=== PATIENT | female | born 1985 | race Caucasian/White ===

== ENCOUNTER 2017-06-13 12:25 | Emergency (ER) | payer MEDICAID ==
[~2017-06-13] VITALS: Ht 172.7 cm; Wt 78.3 kg
[2017-06-13] MEDS ORDERED: SODIUM CHLORIDE 0.9% 1,000ML IVBOLUS ONE (13:00)
[2017-06-13] MEDS ORDERED: FAMOTIDINE 20 MG/2 ML IVP ONE (13:00)
[2017-06-13] MEDS ORDERED: DIPHENHYDRAMINE 50 MG/ML, 1ML IVPush ONE (13:00)
[2017-06-13] MEDS ORDERED: SODIUM CHLORIDE FLUSH 10ML SYR IVF ONE (13:00)
[2017-06-13] MEDS ORDERED: METOCLOPRAMIDE 5 MG/ML, 2ML IVPush ONE (13:00)
[2017-06-13] MEDS ORDERED: DIPHENHYDRAMINE 50 MG/ML, 1ML ONE (13:02)
[2017-06-13] MEDS ORDERED: METOCLOPRAMIDE 5 MG/ML, 2ML ONE (13:02)
[2017-06-13] MEDS ORDERED: FAMOTIDINE 20 MG/2 ML ONE (13:02)
[2017-06-13 13:17] LABS: HEMATOCRIT 37.7 % (34.6-47.8); HEMOGLOBIN 13.2 g/dL (11.7-16.4); WHITE BLOOD COUNT 7.2 x10^3/uL (3.4-10)
[2017-06-13 13:24] VITALS: BP 112/64
[2017-06-13 13:24] LABS: ASPARTATE AMINO TRANSFERASE 12 U/L (15-37); BLOOD UREA NITROGEN 9 mg/dL (7-18)
== END 2017-06-13 13:42 | disposition left against medical advice (07) ==
LOC: ED 12:53
DX: O26.893 Other specified pregnancy related conditions, third trimester (principal); Z3A.35 35 weeks gestation of pregnancy; G43.019 Migraine without aura, intractable, without status migrainosus; Z87.891 Personal history of nicotine dependence
CPT/HCPCS: 36415; 80053; 81001; 83690; 85025; 87086; 87147; 96361; 96374; 96375; 99284; J1200; J2765; J7030; S0028

== ENCOUNTER 2017-06-22 14:39 | Outpatient (CLI) | payer MEDICAID ==
[~2017-06-22] VITALS: Ht 172.7 cm; Wt 79.0 kg
[~2017-06-22 14:39] MED LIST: ACET-1600 PO; CLIN300C8 PO; METH-356 PO; NIFE10CA2 PO; NITR100C56 PO; ONDA4TAB10 PO; PREN1TAB10 PO
[2017-06-22 15:23] LABS: DAU SCREEN DISCLAIMER
[2017-06-22 15:31] VITALS: BP 101/64
== END 2017-06-22 17:00 | disposition home or self-care (01) ==
LOC: LDOP 14:39
PROVIDERS: ATTEND Obstetrics & Gynecology
DX: O26.893 Other specified pregnancy related conditions, third trimester (principal); O99.333 Smoking (tobacco) complicating pregnancy, third trimester; R10.9 Unspecified abdominal pain; F17.200 Nicotine dependence, unspecified, uncomplicated; Z3A.35 35 weeks gestation of pregnancy
CPT/HCPCS: 59025; 80307; 81001; 87086; 99211; G0463; G0479

== ENCOUNTER 2017-07-06 01:43 | Outpatient (CLI) | payer MEDICAID ==
[2017-07-06 01:59] VITALS: BP 109/67
== END 2017-07-06 03:21 | disposition home or self-care (01) ==
LOC: LDOP 01:43
PROVIDERS: ATTEND Obstetrics & Gynecology
DX: O26.893 Other specified pregnancy related conditions, third trimester (principal); O99.333 Smoking (tobacco) complicating pregnancy, third trimester; F17.200 Nicotine dependence, unspecified, uncomplicated; R10.9 Unspecified abdominal pain; Z3A.37 37 weeks gestation of pregnancy
CPT/HCPCS: 59025; 99211; G0463

== ENCOUNTER 2017-07-10 14:44 | Inpatient (IN) | payer MEDICAID ==
[~2017-07-10] VITALS: Ht 172.7 cm; Wt 78.6 kg
[2017-07-10 14:45] VITALS: BP 108/68
[2017-07-10] MEDS ORDERED: D5%-LACTATED RINGERS 1,000 ML IV SCH (15:39)
[2017-07-10] MEDS ORDERED: OXYTOCIN 30U/ 0.9% NaCL 500ML 500 ML IV ONE (15:39)
[2017-07-10 15:53] LABS: DAU SCREEN DISCLAIMER
[2017-07-10] MEDS ORDERED: METOCLOPRAMIDE 5 MG/ML, 2ML IVPush PRN (16:00)
[2017-07-10] MEDS ORDERED: FENTANYL PF 100 MCG/2ML IV PRN (16:00)
[2017-07-10] MEDS ORDERED: CLINDAMYCIN PMX 900MG/50ML 50 ML IVPB SCH (16:00)
[2017-07-10] MEDS ORDERED: TERBUTALINE 1 MG/ML, 1ML IVPush PRN (16:00)
[2017-07-10] MEDS ORDERED: FENTANYL PF 100 MCG/2ML IVPush PRN (16:00)
[2017-07-10] MEDS ORDERED: SODIUM CITRATE/CITRIC ACID 30 ML UDC PO PRN (16:00)
[2017-07-10] MEDS ORDERED: OXYTOCIN 30U/ 0.9% NaCL 500ML 500 ML ONE (16:06)
[2017-07-10] MEDS ORDERED: MISOPROSTOL 200 MCG TABLET ONE (16:06)
[2017-07-10] MEDS ORDERED: NEWBORN KIT ONE (16:06)
[2017-07-10] MEDS: LACTATED RINGERS 1,000 ML IV SCH ×2 (16:28→16:59)
[2017-07-10 16:29] LABS: HEMATOCRIT 40.3 % (34.6-47.8); HEMOGLOBIN 13.6 g/dL (11.7-16.4); WHITE BLOOD COUNT 9.1 x10^3/uL (3.4-10)
[2017-07-10] MEDS ORDERED: FENTANYL PF 100 MCG/2ML ONE (16:33)
[2017-07-10] MEDS ORDERED: ONDANSETRON 2MG/ML, 2ML ONE ×2 (16:34→22:03)
[2017-07-10] MEDS: ONDANSETRON 2MG/ML, 2ML IVPush PRN ×2 (16:36→22:05)
[2017-07-10] MEDS ORDERED: CLINDAMYCIN PMX 900MG/50ML 50 ML ONE (16:43)
[2017-07-10] MEDS ORDERED: FENTANYL/BUPIV./NS/PF 250 ML EPIDCONT ONE ×2 (17:15→17:25)
[2017-07-10] MEDS ORDERED: LIDOCAINE/PF 1.5%-EPI 1:200K, 30ML ONE (17:25)
[2017-07-10] MEDS ORDERED: LIDOCAINE 1%, 20ML ONE (17:25)
[2017-07-10] MEDS ORDERED: VANCOMYCIN PMX 1GM/200ML 200 ML IVPB SCH (18:00)
[2017-07-10] MEDS ORDERED: FENTANYL/BUPIV./NS/PF 250 ML EPIDCONT SCH (18:10)
[2017-07-10] MEDS ORDERED: LACTATED RINGERS 1,000 ML IV SCH (18:10)
[2017-07-10] MEDS ORDERED: LACTATED RINGERS 1,000 ML IVBOLUS PRN (18:30)
[2017-07-10] MEDS ORDERED: NALOXONE 0.4 MG/ML, 1ML IVPush PRN (18:30)
[2017-07-10] MEDS ORDERED: EPHEDRINE 50 MG/ML, 1ML IVPush PRN (18:30)
[2017-07-10] MEDS ORDERED: OXYTOCIN 30U/ 0.9% NaCL 500ML 500 ML IV PRN (19:36)
[2017-07-10] MEDS ORDERED: CALCIUM CARBONATE 500 MG TAB.CHEW ONE ×2 (20:31→22:13)
[2017-07-10] MEDS ORDERED: SODIUM CITRATE/CITRIC ACID 30 ML UDC ONE (20:34)
[2017-07-10] MEDS ORDERED: CALCIUM CARBONATE 500 MG TAB.CHEW PO PRN (22:30)
[2017-07-11] MEDS ORDERED: OXYTOCIN 30U/ 0.9% NaCL 500ML 500 ML IV SCH (00:03)
[2017-07-11] MEDS ORDERED: HYDROcodone/APAP 5/325 TABLET ONE (00:09)
[2017-07-11] MEDS ORDERED: IBUPROFEN 600 MG TABLET ONE (00:09)
[2017-07-11] MEDS: IBUPROFEN 600 MG TABLET PO PRN ×3 (00:11→15:28)
[2017-07-11] MEDS ORDERED: MISOPROSTOL 200 MCG TABLET PR PRN (00:30)
[2017-07-11] MEDS ORDERED: MAGNESIUM HYDROXIDE 8%, 30ML UDC PO PRN (00:30)
[2017-07-11] MEDS ORDERED: DOCUSATE 100 MG CAPSULE PO PRN (00:30)
[2017-07-11] MEDS ORDERED: CARBOPROST TROMETHAMINE 250 MCG/ML, 1ML IM PRN (00:30)
[2017-07-11] MEDS ORDERED: HYDROcodone/APAP 5/325 TABLET PO PRN ×2 (00:30)
[2017-07-11] MEDS ORDERED: CALCIUM CARBONATE 500 MG TAB.CHEW PO PRN (00:30)
[2017-07-11] MEDS ORDERED: METHYLERGONOVINE 0.2 MG/ML IM PRN (00:30)
[2017-07-11] MEDS ORDERED: ONDANSETRON 2MG/ML, 2ML IV PRN (00:30)
[2017-07-11] MEDS ORDERED: ACETAMINOPHEN 325 MG TABLET PO PRN (00:30)
[2017-07-11] MEDS ORDERED: OXYTOCIN 30U/ 0.9% NaCL 500ML 500 ML ONE (01:30)
[2017-07-11 02:25] VITALS: BP 94/56
[2017-07-11] MEDS ORDERED: METHADONE INTENSOL 10 MG/ML ORAL CONC PO PRN (06:30)
[2017-07-11] MEDS ORDERED: PRENATAL VIT/IRON/FA 1 EACH TABLET ONE (07:30)
[2017-07-11 07:32] VITALS: BP 99/61
[2017-07-11 08:18] LABS: HEMATOCRIT 32.4 % (34.6-47.8); HEMOGLOBIN 11.1 g/dL (11.7-16.4); WHITE BLOOD COUNT 11.6 x10^3/uL (3.4-10)
[2017-07-11] MEDS ORDERED: PRENATAL VIT/IRON/FA 1 EACH TABLET PO SCH (09:00)
[2017-07-11 12:29] VITALS: BP 96/57
[2017-07-11] MEDS ORDERED: IBUP-1222 PO (13:46)
== END 2017-07-11 16:38 | disposition home or self-care (01) | DRG 775 ==
LOC: LDOP 14:44 → LDIP 15:39 → 2NW 07-11 02:14
PROVIDERS: ADMIT Obstetrics & Gynecology; ATTEND Obstetrics & Gynecology
PROC: 0W8NXZZ Division of Female Perineum, External Approach (ICD-10-PCS; principal; 2017-07-11)
PROC: 10E0XZZ Delivery of Products of Conception, External Approach (ICD-10-PCS; 2017-07-11)
PROC: 3E0R3BZ Introduction of Anesthetic Agent into Spinal Canal, Percutaneous Approach (ICD-10-PCS; 2017-07-11)
PROC: 00HU33Z Insertion of Infusion Device into Spinal Canal, Percutaneous Approach (ICD-10-PCS; 2017-07-11)
DX: O99.824 Streptococcus B carrier state complicating childbirth (principal); F11.20 Opioid dependence, uncomplicated; O99.324 Drug use complicating childbirth; Z37.0 Single live birth; Z3A.37 37 weeks gestation of pregnancy; Z88.0 Allergy status to penicillin
CPT/HCPCS: 36415; 80307; 81001; 82803; 85025; 86850; 86900; 88305; J2405; J3010; J3370; J3490; G0479; J2590; J7120; J7121

== ENCOUNTER 2018-05-27 14:56 | Emergency (ER) | payer MEDICAID ==
[~2018-05-27] VITALS: Ht 177.8 cm; Wt 85.0 kg
[~2018-05-27 14:56] MED LIST changes: +IBUP-1222 PO; -NIFE10CA2 PO; +NIFE10CA49 PO
[2018-05-27] MEDS ORDERED: hydrOXyzine 50MG TABLET ONE (17:15)
[2018-05-27] MEDS ORDERED: hydrOXYzine 50 MG/ML IM PRN (17:30)
[2018-05-27] MEDS ORDERED: HYDROXYZINE PAMOATE 50MG CAP PO ONE (17:30)
[2018-05-27 17:40] VITALS: BP 106/50
== END 2018-05-27 17:43 | disposition home or self-care (01) ==
LOC: ED 17:37
DX: F41.1 Generalized anxiety disorder (principal); G43.909 Migraine, unspecified, not intractable, without status migrainosus
CPT/HCPCS: 93005; 99284

== ENCOUNTER 2018-08-16 16:20 | Emergency (ER) | payer MEDICAID ==
[~2018-08-16] VITALS: Ht 177.8 cm; Wt 83.6 kg
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
--- NOTE | 2018-08-16 19:15 | NUR ---
Patient/Caregiver given discharge instructions and they have confirmed that they understand the instructions. Patient ambulatory with steady gait. PT LEFT WITH ALL PERSONAL BELONGINGS.
== END 2018-08-16 19:17 | disposition home or self-care (01) ==
LOC: ED 19:11
DX: B30.9 Viral conjunctivitis, unspecified (principal); F41.1 Generalized anxiety disorder; F32.9 Major depressive disorder, single episode, unspecified
CPT/HCPCS: 99283

== ENCOUNTER 2018-09-22 12:03 | Emergency (ER) | payer MEDICAID ==
[~2018-09-22] VITALS: Ht 177.8 cm; Wt 81.6 kg
[~2018-09-22 12:03] MED LIST changes: -METH-356 PO; +METH10TA2 PO
--- NOTE | 2018-09-22 12:36 | NUR ---
PT C/O BLADDER PAIN X 3 WEEKS, STATES SHE WAS DX WITH UTI AND GIVEN RX, NEVER FILLED. PT ALSO C/O DENTAL PAIN X 2 DAYS. AMBULATORY WITH STEADY GAIT TO BATHROOM FOR URINE SAMPLE. RESTING ON GURNEY, CALL LIGHT IN REACH. NADN. AWATING ORDERS.
[2018-09-22] MEDS ORDERED: CEFTRIAXONE PMX 1GM/50ML 50 ML ONE (12:38)
[2018-09-22] MEDS ORDERED: HYDROcodone/APAP 5/325 TABLET ONE (12:38)
[2018-09-22] MEDS ORDERED: CEFTRIAXONE PMX 1GM/50ML 50 ML IV ONE (13:00)
[2018-09-22] MEDS ORDERED: HYDROcodone/APAP 5/325 TABLET PO ONE (13:00)
[2018-09-22] MEDS ORDERED: SODIUM CHLORIDE FLUSH 10ML SYR IVF ONE (13:00)
[2018-09-22 13:08] VITALS: BP 108/56
--- NOTE | 2018-09-22 13:28 | NUR ---
LUNCH RN: IV ABX COMPLETED AT THIS TIME. AWAIITNG FURTHER ORDERS.
[2018-09-22 13:33] LABS: HCG UR SG 1.014 (1.003-1.030); MICROSCOPIC AUTO
[2018-09-22 13:34] LABS: CULTURE INDICATED? YES
[2018-09-22 13:38] LABS: ALANINE AMINOTRANSFERASE 28 U/L (12-78); ALBUMIN 3.8 g/dL (3.4-5.0); ANION GAP 7 mmol/L (5-15); CALCIUM 9.1 mg/dL (8.5-10.1); CHLORIDE 107 mmol/L (98-107); CREATININE 0.94 mg/dL (0.55-1.02)
[2018-09-22 13:39] LABS: BASOPHILS # (AUTO) 0.01 x10^3/uL (0-0.1); BASOPHILS % (AUTO) 0 % (0-1); EOSINOPHILS # (AUTO) 0.12 x10^3/uL (0-0.4); EOSINOPHILS % (AUTO) 2 % (1-7); LYMPHOCYTES # (AUTO) 1.57 x10^3/uL (1-3.4); LYMPHOCYTES % (AUTO) 26 % (22-44); MD NO; MEAN CORPUSCULAR HEMOGLOBIN 30.5 pg (27.0-34.8); MEAN CORPUSCULAR HGB CONC 34.6 g/dL (32.4-35.8); MEAN CORPUSCULAR VOLUME 88.3 fL (80-100); MONOCYTES # (AUTO) 0.28 x10^3/uL (0.2-0.8); MONOCYTES % (AUTO) 5 % (2-9); NEUTROPHILS # (AUTO) 4.05 x10^3/uL (1.8-6.8); NEUTROPHILS % (AUTO) 67 % (42-75); PLATELET COUNT 248 x10^3/uL (130-400); RED BLOOD COUNT 5.26 x10^6/uL (3.82-5.3); RED CELL DISTRIBUTION WIDTH 13.2 % (9.6-15.2)
[2018-09-22 13:40] LABS: ALKALINE PHOSPHATASE 74 U/L (45-117); BILIRUBIN,TOTAL 0.6 mg/dL (0.2-1.0); TOTAL PROTEIN 7.5 g/dL (6.4-8.2)
--- NOTE | 2018-09-22 13:50 | NUR ---
PT HANDOFF REPORT TO PATRICE BLANCHARD.
[2018-09-22] MEDS ORDERED: ONDANSETRON ODT 4 MG ONE (14:05)
[2018-09-22] MEDS ORDERED: ONDANSETRON ODT 4 MG PO ONE (14:30)
== END 2018-09-22 14:18 | disposition home or self-care (01) ==
LOC: ED 12:20
DX: F41.1 Generalized anxiety disorder (principal); G43.909 Migraine, unspecified, not intractable, without status migrainosus
CPT/HCPCS: 36415; 80053; 81001; 81025; 83690; 85025; 87086; 96365; 99284; J0696; Q0162

== ENCOUNTER 2018-10-13 16:19 | Emergency (ER) | payer MEDICAID ==
[~2018-10-13] VITALS: Ht 177.8 cm; Wt 83.5 kg
[2018-10-13 16:20] VITALS: BP 110/61
== END 2018-10-13 17:02 | disposition home or self-care (01) ==
LOC: ED 16:52
DX: L03.113 Cellulitis of right upper limb (principal); F17.210 Nicotine dependence, cigarettes, uncomplicated
CPT/HCPCS: 99283

== ENCOUNTER 2018-11-09 08:34 | Emergency (ER) | payer MEDICAID ==
[~2018-11-09] VITALS: Ht 175.3 cm; Wt 81.1 kg
[2018-11-09 08:45] VITALS: BP 113/69
[2018-11-09 09:49] LABS: BASOPHILS # (AUTO) 0.02 x10^3/uL (0-0.1); BASOPHILS % (AUTO) 0 % (0-1); EOSINOPHILS # (AUTO) 0.04 x10^3/uL (0-0.4); EOSINOPHILS % (AUTO) 1 % (1-7); LYMPHOCYTES # (AUTO) 1.55 x10^3/uL (1-3.4); LYMPHOCYTES % (AUTO) 29 % (22-44); MD NO; MEAN CORPUSCULAR HEMOGLOBIN 29.7 pg (27.0-34.8); MEAN CORPUSCULAR VOLUME 87.4 fL (80-100); MEAN PLATELET VOLUME 7.1 fL (7.4-10.4); MONOCYTES # (AUTO) 0.21 x10^3/uL (0.2-0.8); MONOCYTES % (AUTO) 4 % (2-9); NEUTROPHILS # (AUTO) 3.56 x10^3/uL (1.8-6.8); NEUTROPHILS % (AUTO) 66 % (42-75); PLATELET COUNT 276 x10^3/uL (130-400); RED BLOOD COUNT 5.03 x10^6/uL (3.82-5.3); RED CELL DISTRIBUTION WIDTH 13.5 % (9.6-15.2)
[2018-11-09 10:01] LABS: ALBUMIN 3.7 g/dL (3.4-5.0); ANION GAP 4 mmol/L (5-15); CHLORIDE 108 mmol/L (98-107)
[2018-11-09 10:02] LABS: CREATININE 1.03 mg/dL (0.55-1.02)
--- NOTE | 2018-11-09 10:12 | NUR ---
ASSUMED CARE OF PT FROM LOBBY AT THIS TIME FOR RME.
[2018-11-09] MEDS ORDERED: LORazepam 1MG TABLET ONE (10:24)
[2018-11-09] MEDS ORDERED: LORazepam 1MG TABLET PO ONE (11:00)
== END 2018-11-09 10:55 | disposition home or self-care (01) ==
LOC: ED 10:14
DX: F41.1 Generalized anxiety disorder (principal); F32.9 Major depressive disorder, single episode, unspecified; F17.210 Nicotine dependence, cigarettes, uncomplicated
CPT/HCPCS: 36415; 80048; 82040; 85025; 99284

== ENCOUNTER 2019-01-10 17:07 | Emergency (ER) | payer MEDICAID ==
[~2019-01-10] VITALS: Ht 170.2 cm; Wt 75.0 kg
[2019-01-10 17:10] VITALS: BP 114/81
--- NOTE | 2019-01-10 17:35 | NUR ---
SW IN ROOM.
[2019-01-10] MEDS ORDERED: LORazepam 1MG TABLET PO ONE (18:00)
[2019-01-10] MEDS ORDERED: LORazepam 1MG TABLET ONE (18:02)
--- NOTE | 2019-01-10 18:05 | NUR ---
PT MEDICATED PER OCT. RIGHTS VERIFIED PRIOR. 3P'S ADDRESSED.
== END 2019-01-10 18:39 | disposition home or self-care (01) ==
LOC: ED 18:23
DX: F41.1 Generalized anxiety disorder (principal); F32.9 Major depressive disorder, single episode, unspecified; G43.909 Migraine, unspecified, not intractable, without status migrainosus
CPT/HCPCS: 99284

== ENCOUNTER 2019-01-17 14:37 | Emergency (ER) | payer MEDICAID ==
[~2019-01-17] VITALS: Ht 175.3 cm; Wt 81.9 kg
[2019-01-17 14:39] VITALS: BP 116/77
[2019-01-17] MEDS ORDERED: LORazepam 1MG TABLET PO ONE (15:30)
[2019-01-17] MEDS ORDERED: LORazepam 1MG TABLET ONE (15:37)
--- NOTE | 2019-01-17 16:01 | NUR ---
Patient/Caregiver given discharge instructions and they have confirmed that they understand the instructions. Patient ambulatory with steady gait.
== END 2019-01-17 16:02 | disposition home or self-care (01) ==
LOC: ED 15:56
DX: F41.1 Generalized anxiety disorder (principal); F32.9 Major depressive disorder, single episode, unspecified; F17.200 Nicotine dependence, unspecified, uncomplicated; Z72.9 Problem related to lifestyle, unspecified; Z75.9 Unspecified problem related to medical facilities and other health care; Z91.14 Patient's other noncompliance with medication regimen
CPT/HCPCS: 99284

== ENCOUNTER 2019-02-02 07:37 | Emergency (ER) | payer MEDICAID ==
[~2019-02-02] VITALS: Ht 175.3 cm; Wt 82.0 kg
[2019-02-02 07:48] VITALS: BP 112/79
--- NOTE | 2019-02-02 08:12 | NUR ---
PT ARRIVED VIA EMS WITH HER DAUGHTER. PT TEARY. PT C/O N/V FOR A FEW DAYS. PT CAME FROM HER APARTMENT WHERE SHE LIVES WITH HER EX-. PT STATES SHE WILL SOON BE HOMELESS, THAT THE EX- WANTS HER OUT. SHE FURTHER STATES SHE HAS A JOB SHE WILL BE STARTING AT THE [facility] BUT WILL HAVE NOWHERE TO LIVE WITH NO FAMILY OR FRIENDS TO HELP. DAUGHTER INTERACTING WITH STAFF AND MOTHER. MOTHER INTERACTING WITH DAUGHTER. DAUGHTER SMILING AND NOT UNKEMPT
[2019-02-02] MEDS ORDERED: LORazepam 1MG TABLET ONE (08:27)
[2019-02-02] MEDS ORDERED: LORazepam 1MG TABLET PO ONE (08:30)
--- NOTE | 2019-02-02 08:42 | NUR ---
PROVIDED PT WITH RESOURCE INFORMATION AND CONTACT NUMBERS FOR [employer]. PT STATES THAT SHE HAS A JOB AT THE [facility] AND ALREADY HAS DAY CARE AT A PRIVATE HOME DAY CARE PROVIDER FOR HER CHILD. I ENCOURAGED PT TO REACH OUT TO ONE OF THE COMMUNITY SUPPORT AGENCIES FOR HOUSING AND EMOTIONAL SUPPORT. I OFFERED TO CALL FOR HER TODAY, BUT SHE STATED THAT SHE WAS ALREADY WORKING ON GETTING A PLACE TO STAY BUT THAT SHE WOULD CONTACT THEM HERSELF TO GET ADDITIONAL SUPPORT. I ENCOURAGED PT TO RTN TO EMERGENCY DEPT IF SHE FOUND HERSELF AND CHILD IN NEED OF ANY HELP.
--- NOTE | 2019-02-02 09:13 | NUR ---
Patient/Caregiver given discharge instructions and they have confirmed that they understand the instructions. Patient ambulatory with steady gait. TAXI VOUCHER
== END 2019-02-02 09:15 ==
LOC: ED 09:09
DX: F41.1 Generalized anxiety disorder (principal); G43.909 Migraine, unspecified, not intractable, without status migrainosus; F32.9 Major depressive disorder, single episode, unspecified
CPT/HCPCS: 99284

== ENCOUNTER 2019-03-02 20:23 | Emergency (ER) | payer MEDICAID ==
[~2019-03-02] VITALS: Ht 170.2 cm; Wt 72.7 kg
== END 2019-03-02 20:44 | disposition left against medical advice (07) ==
LOC: ED 20:30
DX: Z76.89 Persons encountering health services in other specified circumstances (principal)
CPT/HCPCS: 99283

== ENCOUNTER 2019-06-05 13:17 | Emergency (ER) | payer MEDICAID ==
[~2019-06-05] VITALS: Ht 175.3 cm; Wt 81.0 kg
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
--- NOTE | 2019-06-05 13:55 | NUR ---
BREAK RN: DR VELAZCO AT BEDSIDE, DISCUSSING POC WITH PT. AWAITING ORDERS
[2019-06-05] MEDS ORDERED: ONDANSETRON ODT 4 MG ONE (14:00)
[2019-06-05] MEDS ORDERED: ONDANSETRON ODT 4 MG PO ONE (14:00)
--- NOTE | 2019-06-05 14:03 | NUR ---
BREAK RN: PT MED NOTED. CALL LIGHT W/I REACH
[2019-06-05 14:30] VITALS: BP 128/48
--- NOTE | 2019-06-05 14:31 | NUR ---
BREAK RN: Patient/Caregiver given discharge instructions and they have confirmed that they understand the instructions. Patient ambulatory with steady gait.
== END 2019-06-05 14:33 | disposition home or self-care (01) ==
LOC: ED 14:00
DX: F41.1 Generalized anxiety disorder (principal); F32.9 Major depressive disorder, single episode, unspecified; F17.200 Nicotine dependence, unspecified, uncomplicated
CPT/HCPCS: 99284; Q0162

== ENCOUNTER 2019-07-06 21:41 | Emergency (ER) | payer MEDICAID ==
[~2019-07-06] VITALS: Ht 172.7 cm; Wt 80.0 kg
[2019-07-06 21:44] VITALS: BP 115/78
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
--- NOTE | 2019-07-06 22:08 | NUR ---
POLICE AT BEDSIDE TAKING A POLICE REPORT FROM PT
[2019-07-06] MEDS ORDERED: LORazepam 1MG TABLET ONE (22:21)
[2019-07-06] MEDS ORDERED: LORazepam 1MG TABLET PO ONE (22:30)
[2019-07-06] MEDS ORDERED: ACETAMINOPHEN 325 MG TABLET ONE (22:57)
[2019-07-06] MEDS ORDERED: ACETAMINOPHEN 325 MG TABLET PO ONE (23:00)
== END 2019-07-07 00:01 | disposition home or self-care (01) ==
LOC: ED 23:00
DX: S02.5XXA Fracture of tooth (traumatic), initial encounter for closed fracture (principal); S09.90XA Unspecified injury of head, initial encounter; G43.909 Migraine, unspecified, not intractable, without status migrainosus; F41.1 Generalized anxiety disorder; F11.90 Opioid use, unspecified, uncomplicated; Y04.0XXA Assault by unarmed brawl or fight, initial encounter; Y93.89 Activity, other specified; Y92.89 Other specified places as the place of occurrence of the external cause; Y99.8 Other external cause status
CPT/HCPCS: 36415; 70486; 84703; 99284

== ENCOUNTER 2019-07-08 13:00 | Emergency (ER) | payer MEDICAID ==
[~2019-07-08] VITALS: Ht 177.8 cm; Wt 71.4 kg
[2019-07-08 13:03] VITALS: BP 120/65
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
--- NOTE | 2019-07-08 15:15 | NUR ---
BREAK RN: REPORT GIVEN TO PATRICE MICHELLE
[2019-07-08] MEDS ORDERED: ONDANSETRON ODT 4 MG ONE (15:37)
[2019-07-08] MEDS ORDERED: LORazepam 1MG TABLET ONE (15:38)
[2019-07-08] MEDS ORDERED: ONDANSETRON ODT 4 MG PO ONE (16:00)
[2019-07-08] MEDS ORDERED: LORazepam 1MG TABLET PO ONE (16:00)
== END 2019-07-08 17:15 | disposition home or self-care (01) ==
LOC: ED 16:19
DX: F41.1 Generalized anxiety disorder (principal); R11.2 Nausea with vomiting, unspecified; Z72.9 Problem related to lifestyle, unspecified; Z59.0 Homelessness; Z88.0 Allergy status to penicillin
CPT/HCPCS: 99284; Q0162

== ENCOUNTER 2019-10-21 06:56 | Emergency (ER) | payer MEDICAID ==
[~2019-10-21] VITALS: Ht 177.8 cm; Wt 75.7 kg
[2019-10-21 07:04] VITALS: BP 124/76
--- NOTE | 2019-10-21 07:16 | NUR ---
Pt to room from triage. Pt is sitting on gurney in [facility] gown.
--- NOTE | 2019-10-21 07:33 | NUR ---
Pt sitting on [facility] tearful. Pt reports increase in current life stressors regarding divorce and child custody with ex-. Pt denies support resources locally from family or friends. Pt denies SI or HI. 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 Pt tearful and anxious but cooperative with ED staff. No needs expressed at this time. Call light within reach. Pt pending ED MD to see.
[2019-10-21] MEDS ORDERED: DIAZEPAM 5 MG TABLET PO ONE (08:30)
[2019-10-21] MEDS ORDERED: ONDANSETRON ODT 4 MG PO ONE (08:30)
[2019-10-21] MEDS ORDERED: DIAZEPAM 5 MG TABLET ONE (08:34)
[2019-10-21] MEDS ORDERED: ONDANSETRON ODT 4 MG ONE (08:35)
--- NOTE | 2019-10-21 09:27 | NUR ---
Patient given discharge instructions and they have confirmed that they understand the instructions. Patient ambulatory with steady gait. Pt friend in room to provide ride home. Pt left with Rx, d/c paperwork, and referral information. Pt left with all personal belongings.
== END 2019-10-21 09:29 | disposition home or self-care (01) ==
LOC: ED 09:23
DX: F41.1 Generalized anxiety disorder (principal); R06.02 Shortness of breath; F32.9 Major depressive disorder, single episode, unspecified; G43.909 Migraine, unspecified, not intractable, without status migrainosus
CPT/HCPCS: 93005; 99283; Q0162

== ENCOUNTER 2019-10-21 21:41 | Emergency (ER) | payer MEDICAID ==
[~2019-10-21] VITALS: Ht 177.8 cm; Wt 74.8 kg
--- NOTE | 2019-10-21 21:59 | NUR ---
provided pt with gown and warm blanket, monitors applied, siderailsup x2, call light within reach. awaiting erp for eval and orders
[2019-10-21] MEDS ORDERED: ONDANSETRON ODT 4 MG PO ONE (22:00)
[2019-10-21] MEDS ORDERED: LORazepam 1MG TABLET PO ONE (22:00)
[2019-10-21] MEDS ORDERED: LORazepam 1MG TABLET ONE (22:04)
[2019-10-21] MEDS ORDERED: ONDANSETRON ODT 8 MG ONE (22:04)
[2019-10-21 22:07] VITALS: BP 106/74
--- NOTE | 2019-10-21 22:07 | NUR ---
PT MEDICATED PER MAR
--- NOTE | 2019-10-21 22:30 | NUR ---
Patient/Caregiver given discharge instructions and they have confirmed that they understand the instructions. Patient ambulatory with steady gait.
== END 2019-10-21 22:32 | disposition home or self-care (01) ==
LOC: ED 22:00
DX: F41.1 Generalized anxiety disorder (principal); R11.0 Nausea; R06.4 Hyperventilation; F17.200 Nicotine dependence, unspecified, uncomplicated
CPT/HCPCS: 99283; Q0162

== ENCOUNTER 2021-02-17 06:52 | Emergency (ER) | payer MEDICAID ==
[~2021-02-17] VITALS: Ht 177.8 cm; Wt 79.5 kg
[~2021-02-17 06:52] MED LIST changes: -CLIN300C8 PO; +CLIN300C9 PO
--- NOTE | 2021-02-17 07:34 | NUR ---
CRAIG MONTGOMERY AT BEDSIDE.
[2021-02-17] MEDS ORDERED: ONDANSETRON 2MG/ML, 2ML ONE (07:43)
[2021-02-17] MEDS ORDERED: FAMOTIDINE 20 MG/2 ML ONE (07:44)
[2021-02-17] MEDS ORDERED: MAALOX/HYOSCYAMINE/LIDOCAINE 45 ML BTL ONE (07:44)
--- NOTE | 2021-02-17 07:45 | NUR ---
PT AMBULATED TO THE BR W/ A STEADY GAIT, RETURNED TO ROOM W/O INCIDENT. CHANGED INTO GOWN. PIV STARTED, LABS DRAWN. PT MEDICATED PER EMAR. PT REFUSING PEPCID AND GI COCKTAIL. RESP EVEN AND UNLABORED, NADN.
[2021-02-17] MEDS ORDERED: ONDANSETRON 2MG/ML, 2ML IVPush ONE (08:00)
[2021-02-17] MEDS ORDERED: LORazepam 2 MG/ML, 1ML IVPush ONE (08:00)
[2021-02-17] MEDS ORDERED: MAALOX/HYOSCYAMINE/LIDOCAINE 45 ML BTL PO ONE (08:00)
[2021-02-17] MEDS ORDERED: SODIUM CHLORIDE 0.9% 1,000ML IVBOLUS ONE (08:00)
[2021-02-17] MEDS ORDERED: FAMOTIDINE 20 MG/2 ML IVPush ONE (08:00)
[2021-02-17] MEDS ORDERED: LORazepam 2 MG/ML, 1ML ONE (08:01)
[2021-02-17 08:03] LABS: BASOPHILS % (AUTO) 1 % (0-1); EOSINOPHILS % (AUTO) 0 % (1-7); LYMPHOCYTES % (AUTO) 15 % (22-44); MEAN CORPUSCULAR HEMOGLOBIN 30.5 pg (27.0-34.8); MEAN CORPUSCULAR HGB CONC 35.5 g/dL (32.4-35.8); MEAN PLATELET VOLUME 6.8 fL (7.4-10.4); MONOCYTES % (AUTO) 3 % (2-9); NEUTROPHILS % (AUTO) 82 % (42-75); PLATELET COUNT 348 x10^3/uL (130-400); RED BLOOD COUNT 5.12 x10^6/uL (3.82-5.3); RED CELL DISTRIBUTION WIDTH 13.5 % (9.6-15.2)
[2021-02-17 08:12] LABS: ALANINE AMINOTRANSFERASE 34 U/L (12-78); ALBUMIN 4.2 g/dL (3.4-5.0); ANION GAP 7 mmol/L (5-15); CALCIUM 9.3 mg/dL (8.5-10.1); CHLORIDE 102 mmol/L (98-107); CREATININE 1.25 mg/dL (0.55-1.02)
[2021-02-17 08:16] LABS: ALKALINE PHOSPHATASE 74 U/L (45-117); BILIRUBIN,TOTAL 0.9 mg/dL (0.2-1.0)
[2021-02-17 08:21] LABS: MICROSCOPIC INDICATED
[2021-02-17] MEDS ORDERED: POTASSIUM CHLORIDE 20 MEQ TAB.ER.PRT PO ONE (09:00)
[2021-02-17] MEDS ORDERED: POTASSIUM CHLORIDE 20 MEQ TAB.ER.PRT ONE (09:07)
[2021-02-17 09:13] VITALS: BP 112/79
--- NOTE | 2021-02-17 09:13 | NUR ---
Patient given discharge instructions and they have confirmed that they understand the instructions. Patient ambulatory with steady gait. NAD, all questions answered appropriately, denies additional needs at this time. No personal belongings left in room after discharge.
== END 2021-02-17 09:14 | disposition home or self-care (01) ==
LOC: ED 08:39
DX: R11.2 Nausea with vomiting, unspecified (principal); Z20.822 Contact with and (suspected) exposure to COVID-19; F41.1 Generalized anxiety disorder; R10.10 Upper abdominal pain, unspecified; E87.6 Hypokalemia; G43.909 Migraine, unspecified, not intractable, without status migrainosus
CPT/HCPCS: 36415; 80053; 81001; 83690; 84703; 85025; 87086; 96361; 96374; 96375; 99284; J2060; J2405; J7030; U0003; U0005

== ENCOUNTER 2021-03-21 13:47 | Emergency (ER) | payer MEDICAID ==
[~2021-03-21] VITALS: Ht 177.8 cm; Wt 85.0 kg
[2021-03-21 13:53] VITALS: BP 96/61
[2021-03-21] MEDS ORDERED: LORazepam 1MG TABLET ONE (14:40)
[2021-03-21] MEDS ORDERED: LIDOCAINE-MPF 1%, 5ML ONE (14:41)
[2021-03-21] MEDS ORDERED: LIDOCAINE-MPF 1%, 5ML INFIL ONE (15:00)
[2021-03-21] MEDS ORDERED: LORazepam 1MG TABLET PO ONE (15:00)
== END 2021-03-21 16:26 | disposition home or self-care (01) ==
LOC: ED 14:00
DX: K04.7 Periapical abscess without sinus (principal); G43.909 Migraine, unspecified, not intractable, without status migrainosus; F17.200 Nicotine dependence, unspecified, uncomplicated
CPT/HCPCS: 41800; 99284